=== PATIENT | female | born 2000 | race Caucasian/White ===

== ENCOUNTER 2021-03-05 12:22 | Emergency (ER) | payer OTHER ==
[~2021-03-05 12:22] MED LIST: BENADRYL25 M1 PO; BENTYL10 MG PO; CARAFATE1 GM PO; MIGRAINE PILL PO; NORCO 5-325 TA1 EACH PO; ONDANSETRON ODT4 MG SL; PEPCID AC20 MG PO; PHENERGAN25 M1 PO; ZOFRAN8 MG PO
[2021-03-05 13:26] LABS: BASOPHIL 0.3 % (0-2); EOSINOPHIL 0.5 % (0-5); HCT 39.1 % (37.0-47.0); HGB 13.7 g/dl (12.5-16.0); LYMPHOCYTE 17.9 % (15-48); MCH 31.6 pg (25.0-31.0); MCV 90.3 fL (78.0-100.0); MONOCYTE 7.4 % (0-12); MPV 9.4 fL (6.0-9.5); NEUTROPHIL 73.6 % (41-80); NRBC 0; PLT 321 K/uL (150-400); RBC 4.33 M/uL (4.20-5.40); RDW 11.6 % (11.5-14.0); WBC 7.9 K/uL (4.0-10.5)
[2021-03-05 13:42] LABS: ALBUMIN 4.8 g/dL (3.4-5.0); BILIRUBIN - TOTAL 0.9 mg/dL (0.2-1.0); BUN/CREAT RATIO (CALC) 15.9 RATIO; CREATININE 0.69 mg/dL (0.51-0.95); GLOBULIN (CALCULATION) 3.2 g/dL; POTASSIUM 3.5 mmol/L (3.5-5.1)
[2021-03-05 13:51] LABS: BILIRUBIN 1+ mg/dL (NEGATIVE); BLOOD NEGATIVE Ery/uL (NEGATIVE); CLARITY CLEAR (CLEAR); COLOR YELLOW (YELLOW); GLUCOSE (U) NORMAL (NORMAL); LEUKOCYTES NEGATIVE Leu/uL (NEGATIVE); NITRITE NEGATIVE (NEGATIVE); PROTEIN TRACE (LOW) mg/dL (NEGATIVE); SPECIFIC GRAVITY >=1.030 (1.001-1.030); UROBILINOGEN 0.2 mg/dL (0.2-1.0)
[2021-03-05 13:58] LABS: AMORPHOUS URATES CRYSTALS LARGE; BACTERIA 1+; MUCOUS TRACE
== END 2021-03-05 15:18 | disposition home or self-care (01) ==
LOC: FER 12:22
PROVIDERS: Physician Assistant
DX: N80.9 Endometriosis, unspecified (principal)
CPT/HCPCS: 36415; 80053; 81001; 83690; 85025; J1885; J2270; J2405; J7030; Q9967